=== PATIENT | female | born 1990 | race Caucasian/White ===

== ENCOUNTER → 2017-09-07 | Outpatient (CLI) | payer OTHER | LOC: BMCIMAGING 09:59 | PROVIDERS: ATTEND Internal Medicine Rheumatology | DX: M15.4 Erosive (osteo)arthritis (principal); M05.842 Other rheumatoid arthritis with rheumatoid factor of left hand; M05.841 Other rheumatoid arthritis with rheumatoid factor of right hand ==

== ENCOUNTER → 2018-09-25 | Outpatient (CLI) | payer OTHER | END | disposition home or self-care (01) | LOC: BMCIMAGING 14:27 | PROVIDERS: ATTEND Internal Medicine Rheumatology | DX: M79.641 Pain in right hand (principal); M79.642 Pain in left hand; M85.831 Other specified disorders of bone density and structure, right forearm; M85.871 Other specified disorders of bone density and structure, right ankle and foot; M85.872 Other specified disorders of bone density and structure, left ankle and foot; M79.89 Other specified soft tissue disorders ==